=== PATIENT | male | born 1970 | race Hispanic/Latino ===

== ENCOUNTER 2020-09-10 20:43 | Inpatient (IN) | payer BC, SELFPAY ==
[2020-09-10] MEDS ORDERED: NA CHLORIDE 0.9% 2,000 ML ONE (21:16)
[2020-09-10] MEDS ORDERED: ACETAMINOPHEN 500 MG TAB ONE (21:16)
[2020-09-10] MEDS ORDERED: ALBUTEROL INHALER 60 PUFF/8 GM IH ONE (21:16)
[2020-09-10] MEDS ORDERED: CEFTRIAXONE/SWI 1gm 1 GM/10 ML SYR ONE (21:16)
[2020-09-10 21:18] LABS: Absolute Lymphocytes (CBC) 0.9 K/uL (0.7-4.9); Basophils % 0.3 % (0-1.3); Hematocrit 45.8 % (39.6-49.0); Lymphocytes % 9.7 % (15.3-44.8); MPV 11.2 fL (7.6-11.3); RBC Red Blood Cell Count 5.79 M/uL (4.33-5.43)
[2020-09-10 21:34] LABS: Protime INR 1.06
[2020-09-10 21:36] LABS: ALT/SGPT 23 U/L (12-78); AST/SGOT 35 U/L (15-37); Albumin 3.1 g/dL (3.4-5.0); Alkaline Phosphatase 71 U/L (45-117); Amylase 53 U/L (25-115); BUN Blood Urea Nitrogen 31 mg/dL (7-18); Bicarbonate 24 mmol/L (21-32); Bilirubin Direct 0.2 mg/dL (0-0.2); Bilirubin Total 0.4 mg/dL (0.2-1.0); CKMB Creatine Kinase MB < 1.0 ng/mL (0.3-3.6); Creatine Phosphokinase 104 U/L (39-308); Glucose Level 120 mg/dL (74-106); Lipase 220 U/L (73-393); Potassium 3.6 mmol/L (3.5-5.1); Protein, Total 7.5 g/dL (6.4-8.2); Sodium Level 134 mmol/L (136-145); Troponin (Emerg Dept Use Only) < 0.02 ng/mL (0.0-0.045)
[2020-09-10 22:19] LABS: C-Reactive Protein 99.7 mg/L (<3.00); Ferritin 1279.1 ng/mL (26-388)
[2020-09-10 22:30] LABS: SARS-COV-2 RT PCR POSITIVE (NEGATIVE)
--- NOTE | 2020-09-10 22:46 | ER ---
Nurse's Notes [facility] Name: Sarwat Tenorio Jr Age: 50 yrs Sex: Male : 1970 Arrival Date: 09/10/2020 Time: 20:47 Bed 4 Private MD: Diagnosis: Acute Kidney Injury;Coronavirus Presentation: 09/10 20:45 Chief complaint: EMS states: acute onset of SOB and chest pain started around 1 hour rr5 ago. 20:45 Coronavirus screen: Client denies travel out of the [place] in the last 14 days. shortness rr5 of breath, Client presents with at least one sign or symptom that may indicate coronavirus-19. Standard/surgical mask placed on the client. Provider contacted for isolation considerations. Ebola Screen: Patient negative for fever greater than or equal to 101.5 degrees Fahrenheit, and additional compatible Ebola Virus Disease symptoms Patient denies exposure to infectious person. Patient denies travel to an Ebola-affected area in the 21 days before illness onset. Initial Sepsis Screen: Does the patient meet any 2 criteria? RR > 20 per min. Temp <36.0*C (96.8*F)) or > 38.3*C (100.9*F). HR > 90 bpm. Does the patient have a suspected source of infection? Yes: Productive cough/pneumonia If YES to both, name of provider notified: Vasquez Becerra MD. Risk Assessment: Do you want to hurt yourself or someone else? Patient reports no desire to harm self or others. Onset of symptoms was September 10, 2020. Care prior to arrival: IV initiated. 20 GA, in the right antecubital area. 20:45 Method Of Arrival: EMS: [facility] rr5 20:45 Acuity: ARMIDA 2 rr5 Triage Assessment: 09/09 20:45 Respiratory: the patient has mild shortness of breath. rr5 Historical: - Allergies: 09/10 20:45 PENICILLINS; rr5 - Home Meds: 20:45 None [Active]; rr5 - PMHx: 20:45 Diverticulitis; rr5 - PSHx: 20:45 abdominal surgery; rr5 - Immunization history:: Adult Immunizations up to date. - Social history:: Smoking status: unknown Patient/guardian denies using alcohol, street drugs. Screenin:54 Abuse screen: Denies threats or abuse. Denies injuries from another. Nutritional rr5 screening: No deficits noted. Tuberculosis screening: No symptoms or risk factors identified. Fall Risk IV access (20 points). Total Eaton Fall Scale indicates No Risk (0-24 pts). Assessment: 20:45 General: Appears in no apparent distress. comfortable, Behavior is calm, cooperative, rr5 appropriate for age. Pain: Complains of pain in chest Pain does not radiate. Pain currently is 7 out of 10 on a pain scale. Quality of pain is described as aching, Pain began gradually, Is intermittent. Neuro: Level of Consciousness is awake, alert, obeys commands, Oriented to person, place, time, situation. Cardiovascular: Reports chest pain, Capillary refill < 3 seconds Patient's skin is warm and dry. Rhythm is sinus tachycardia. Respiratory: Reports shortness of breath Airway is patent Respiratory effort is even, unlabored, Respiratory pattern is regular, symmetrical, 20:45 GI: No signs and/or symptoms were reported involving the gastrointestinal system. : rr5 No signs and/or symptoms were reported regarding the genitourinary system. EENT: No signs and/or symptoms were reported regarding the EENT system. Derm: Skin is intact, is healthy with good turgor, Skin temperature is warm. Musculoskeletal: Capillary refill < 3 seconds. 22:10 Reassessment: Patient appears in no apparent distress at this time. Patient is alert, rr5 oriented x 3, equal unlabored respirations, skin warm/dry/pink. awaiting for results. 23:16 Reassessment: Patient appears in no apparent distress at this time. Patient is alert, rr5 oriented x 3, equal unlabored respirations, skin warm/dry/pink. Patient states feeling better. Patient states symptoms have improved. 23:18 Reassessment: Patient appears in no apparent distress at this time. Patient is alert, rr5 oriented x 3, equal unlabored respirations, skin warm/dry/pink. hospitalist at bedside. 09/11 00:04 Reassessment: Patient appears in no apparent distress at this time. Patient is alert, rr5 oriented x 3, equal unlabored respirations, skin warm/dry/pink. for transfer to ICU 8 Patient states feeling better. Patient states symptoms have improved. Vital Signs: 04/16 20:45 BP 137 / 93; Pulse 120; Resp 23; Temp 103.2; Pulse Ox 94% ; Weight 86.18 kg; Height 5 rr5 ft. 7 in. (170.18 cm); Pain 6/10; 21:47 BP 147 / 90; Pulse 90; Resp 20; Temp 101; Pulse Ox 99% ; rr5 23:12 BP 141 / 88; Pulse 93; Resp 19; Temp 99; Pulse Ox 99% ; rr5 23:57 BP 129 / 80; Pulse 84; Resp 17; Pulse Ox 98% ; rr5 20:45 Body Mass Index 29.76 (86.18 kg, 170.18 cm) rr5 ED Course: 20:45 Patient has correct armband on for positive identification. Placed in gown. Bed in low rr5 position. Call light in reach. Side rails up X2. monitor worker on. Pulse ox on. NIBP on. 20:46 Maintain EMS IV. Dressing intact. Good blood return noted. Site clean \T\ dry. Gauge \T\ rr 5 site: g20 right AC. 20:47 Patient arrived in ED. rr5 20:47 Conner Garza PA is PHCP. jmm 20:47 Vasquez Becerra MD is Attending Physician. jmm 20:51 Triage completed. rr5 20:53 Arm band placed on right wrist. rr5 20:54 Oliverio Boland RN is Primary Nurse. rv 21:35 Chest Single View XRAY In Process Unspecified. EDMS 22:43 Too Lainez MD is Hospitalizing Provider. jmm 23:56 No provider procedures requiring assistance completed. Patient admitted, IV remains in rr5 place. intact, No redness/swelling at site. Administered Medications: 21:15 Drug: NS 0.9% (30 ml/kg) 30 ml/kg Route: IV; Rate: bolus; Site: right antecubital; rr5 23:40 Follow up: Response: No adverse reaction; IV Status: Completed infusion; IV Intake: rr5 2500ml 21:18 Drug: Rocephin (cefTRIAXone) 1 grams Route: IV; Rate: calculated rate; Site: right rr5 antecubital; 22:20 Follow up: Response: No adverse reaction; IV Status: Completed infusion; IV Intake: [id number] 21:18 Drug: Tylenol 1000 mg Route: PO; rr5 22:30 Follow up: Response: No adverse reaction; Temperature is decreased rr5 21:25 Drug: Albuterol HFA Inhaler 2 puffs Route: Inhalation; rr5 22:20 Follow up: Response: No adverse reaction rr5 22:41 Drug: SOLU-Medrol (methylPrednisoLONE) 125 mg Route: IVP; Site: right antecubital; rv 23:40 Follow up: Response: No adverse reaction rr5 Intake: 22:20 IV: 10ml; Total: 10ml. rr5 23:40 IV: 2500ml; Total: 2510ml. rr5 Outcome: 22:45 Decision to Hospitalize by Provider. jens 23:56 Admitted to ICU accompanied by mindy, via stretcher, room 8, with chart, Report called rr5 to nathan 23:56 Condition: stable 23:56 Instructed on the need for admit. 09/11 00:22 Patient left the ED. rr5 Signatures: Dispatcher [employer] EDMS Conner Garza PA PA [facility] Oliverio Boland, RN RN Too Montiel, RN RN rr5 Corrections: (The following items were deleted from the chart) 09/10 21:48 20:45 BP 137 / 93; Pulse 94bpm; Resp 23bpm; Pulse Ox 94%; Temp 103.2F; 86.18 kg; Height rr5 5 ft. 7 in.; BMI: 29.7; Pain 6/10; rr5
--- NOTE | 2020-09-10 22:46 | EDPHYS ---
Physician Documentation [facility] Name: Sarwat Tenorio Jr Age: 50 yrs Sex: Male : 1970 Arrival Date: 09/10/2020 Time: 20:47 Bed 4 Private MD: ED Physician Vasquez Becerra HPI: 09/10 20:48 This 50 yrs old Male presents to ER via EMS with complaints of Shortness Of jmm Breath. 20:48 The patient has shortness of breath at rest. Onset: The symptoms/episode began/occurred jmm acutely, today. Duration: The symptoms are continuous, and are steadily getting worse. The patient's shortness of breath is aggravated by nothing, is alleviated by nothing. Associated signs and symptoms: Pertinent positives: chest pain, non-productive cough, fever, Pertinent negatives: vomiting. The patient has not experienced similar symptoms in the past. Historical: - Allergies: 20:45 PENICILLINS; rr5 - Home Meds: 20:45 None [Active]; rr5 - PMHx: 20:45 Diverticulitis; rr5 - PSHx: 20:45 abdominal surgery; rr5 - Immunization history:: Adult Immunizations up to date. - Social history:: Smoking status: unknown Patient/guardian denies using alcohol, street drugs. ROS: 20:48 Constitutional: Positive for fever. jmm 20:48 Cardiovascular: Positive for chest pain. 20:48 Respiratory: Positive for cough, shortness of breath. 20:48 All other systems are negative. Exam: 20:48 Head/Face: atraumatic. Eyes: EOMI, no conjunctival erythema appreciated ENT: Moist jmm Mucus Membranes Neck: Trachea midline, Supple Chest/axilla: Normal chest wall appearance and motion. Cardiovascular: Regular rate and rhythm. No edema appreciated Respiratory: Normal respirations, no respiratory distress appreciated Abdomen/GI: Non distended, soft Skin: General appearance color normal MS/ Extremity: Moves all extremities, no obvious deformities appreciated, no edema noted to the lower extremities Neuro: Awake and alert, normal gait Psych: Behavior is normal, Mood is normal, Patient is cooperative and pleasant 20:48 Constitutional: The patient appears alert, awake, anxious. Vital Signs: 20:45 BP 137 / 93; Pulse 120; Resp 23; Temp 103.2; Pulse Ox 94% ; Weight 86.18 kg; Height 5 rr5 ft. 7 in. (170.18 cm); Pain 6/10; 21:47 BP 147 / 90; Pulse 90; Resp 20; Temp 101; Pulse Ox 99% ; rr5 23:12 BP 141 / 88; Pulse 93; Resp 19; Temp 99; Pulse Ox 99% ; rr5 23:57 BP 129 / 80; Pulse 84; Resp 17; Pulse Ox 98% ; rr5 20:45 Body Mass Index 29.76 (86.18 kg, 170.18 cm) rr5 MDM: 20:49 Patient medically screened. [facility] 22:42 Data reviewed: vital signs, EMS record. Counseling: I had a detailed discussion with jens the patient and/or guardian regarding: the historical points, exam findings, and any diagnostic results supporting the discharge/admit diagnosis, lab results, radiology results, the need for further work-up and treatment in the hospital. 09/10 20:48 Order name: Amylase, Serum; Complete Time: 21:43 [facility] 09/10 20:48 Order name: Basic Metabolic Panel; Complete Time: 21:43 09/10 20:48 Order name: Blood Culture Adult (2) 09/10 20:48 Order name: CBC with Diff; Complete Time: 21:43 [facility] 09/10 20:48 Order name: Ckmb; Complete Time: 21:43 09/10 20:48 Order name: CPK; Complete Time: 21:43 09/10 20:48 Order name: Lactate; Complete Time: 21:43 09/10 20:48 Order name: LFT's; Complete Time: 21:43 [facility] 09/10 20:48 Order name: Lipase; Complete Time: 21:43 [facility] 09/10 20:48 Order name: Procalcitonin; Complete Time: 22:01 [facility] 09/10 20:48 Order name: Protime (+inr); Complete Time: 21:43 [facility] 09/10 20:48 Order name: Ptt, Activated; Complete Time: 21:43 09/10 20:48 Order name: Troponin (emerg Dept Use Only); Complete Time: 21:43 09/10 20:48 Order name: Urine Microscopic Only 09/10 20:48 Order name: Chest Single View XRAY 5 09/10 20:48 Order name: Accucheck; Complete Time: 21:19 rr5 09/10 20:48 Order name: Cardiac monitoring; Complete Time: 21:19 rr5 09/10 21:03 Order name: CRP la1 09/10 21:03 Order name: Ferritin la1 09/10 21:04 Order name: C-Reactive Protein; Complete Time: 22:20 EDMS 09/10 21:04 Order name: Ferritin; Complete Time: 22:20 EDMS 09/10 21:25 Order name: Glucose, Ancillary Testing; Complete Time: 21:43 EDMS 09/10 22:30 Order name: COVID-19/FLU A+B; Complete Time: 22:43 EDMS 09/10 20:48 Order name: EKG - Nurse/Tech; Complete Time: 21:19 rr5 09/10 20:48 Order name: IV Saline Lock - Large Bore; Complete Time: 21:19 rr5 09/10 20:48 Order name: Labs collected and sent; Complete Time: 21:19 rr5 09/10 20:48 Order name: O2 Per Protocol; Complete Time: 21:19 rr5 09/10 20:48 Order name: O2 Sat Monitoring; Complete Time: 21:19 rr5 09/10 20:48 Order name: Urine Dipstick-Ancillary (obtain specimen); Complete Time: 00:22 rr5 Administered Medications: 21:15 Drug: NS 0.9% (30 ml/kg) 30 ml/kg Route: IV; Rate: bolus; Site: right antecubital; rr5 23:40 Follow up: Response: No adverse reaction; IV Status: Completed infusion; IV Intake: rr5 2500ml 21:18 Drug: Rocephin (cefTRIAXone) 1 grams Route: IV; Rate: calculated rate; Site: right rr5 antecubital; 22:20 Follow up: Response: No adverse reaction; IV Status: Completed infusion; IV Intake: [id number] 21:18 Drug: Tylenol 1000 mg Route: PO; rr5 22:30 Follow up: Response: No adverse reaction; Temperature is decreased rr5 21:25 Drug: Albuterol HFA Inhaler 2 puffs Route: Inhalation; rr5 22:20 Follow up: Response: No adverse reaction rr5 22:41 Drug: SOLU-Medrol (methylPrednisoLONE) 125 mg Route: IVP; Site: right antecubital; rv 23:40 Follow up: Response: No adverse reaction rr5 Disposition: 09/11 07:27 Co-signature as Attending Physician, Vasquez Becerra MD. 7 Disposition: 09/10/20 22:45 Hospitalization ordered by Too Lainez for Observation. Preliminary diagnosis are Acute Kidney Injury, Coronavirus. - Bed requested for Intensive Care Unit. - Status is Observation. rr5 - Condition is Stable. - Problem is new. - Symptoms are unchanged. Signatures: Dispatcher [employer] [facility] Conner Garza PA PA [facility] Rex Mcleod, ELECTRICIAN APPRENTICE-C ELECTRICIAN APPRENTICE-Cla1 Tiffanie Mills, RN RN cg Oliverio Boland, RN RN rv Too Montiel, RN RN rr5 Vasquez Becerra MD MD 7 Corrections: (The following items were deleted from the chart) 09/10 21:08 20:55 Influenza Screen (A \T\ B)+BA.LAB.BRZ ordered. [facility] EDIL 23:41 22:45 Hospitalization Ordered by Too Lainez MD for Observation. Preliminary cg diagnosis is Acute Kidney Injury; Coronavirus. Bed requested for Telemetry/MedSurg (observation). Status is Observation. Condition is Stable. Problem is new. Symptoms are unchanged. [facility] 09/11 00:22 09/10 23:41 09/10/2020 22:45 Hospitalization Ordered by Too Lainez MD for rr5 Observation. Preliminary diagnosis is Acute Kidney Injury; Coronavirus. Bed requested for Intensive Care Unit. Status is Observation. Condition is Stable. Problem is new. Symptoms are unchanged. cg
[2020-09-10] MEDS ORDERED: METHYLPREDNISOLONE 125 MG INJ ONE (22:57)
--- NOTE | 2020-09-10 23:39 | P.HP ---
Certification for Inpatient Patient admitted to: Inpatient With expected LOS: >2 Midnights Patient will require the following post-hospital care: None Practitioner: I am a practitioner with admitting privileges, knowledge of patient current condition, hospital course, and medical plan of care. Services: Services provided to patient in accordance with Admission requirements found in Title 42 Section 412.3 of the Code of Federal Regulations <HarshaRex - Last Filed: 09/10/20 23:36> Patient History Date of Service: 09/10/20 Reason for admission: COVID-19 pneumonia History of Present Illness: 50-year-old male with no significant past medical history presents emergency department for shortness of breath. Patient reports noticing shortness of breath began today, upon arrival to the emergency department patient was saturating around 90-93% on room air. Labs in the emergency department significant for sodium 134, BUN 31 creatinine 1.9 GFR 38 CRP 899.7 ferritin 1279.1 pro calcitonin 0.34 patient tested positive for Reddy virus, chest x-ray suggests bilateral reddy virus pneumonia. ED provider wishes to admit for further evaluation and management. 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 family - Family History Father -: Diabetes, Cancer Mother -: Diabetes, Cancer - Social History Smoking Status: Never smoker Alcohol use: No CD- Drugs: No Caffeine use: Yes Place of Residence: Home <Rex Mcleod - Last Filed: 09/10/20 23:36> Date of Service: 09/11/20 <Too Lainez - Last Filed: 09/11/20 12:20> Review of Systems 10-point ROS is otherwise unremarkable General: Fever, Chills, Weakness, Malaise Respiratory: Cough, Shortness of Breath, SOB with Excertion, Pleuritic Pain <Rex Mcleod - Last Filed: 09/10/20 23:36> Physical Examination - Physical Exam General: Alert, In no apparent distress HEENT: Atraumatic, PERRLA, Mucous membr. moist/pink Neck: Supple, 2+ carotid pulse no bruit, No LAD Respiratory: Normal air movement, Diminished (Bilaterally) Cardiovascular: Regular rate/rhythm, Normal S1 S2 Gastrointestinal: Normal bowel sounds, No tenderness Musculoskeletal: No tenderness Integumentary: No rashes Neurological: Normal gait, Normal speech, Normal strength at 5/5 x4 extr, Normal tone, Normal affect Lymphatics: No axilla or inguinal lymphadenopathy - Studies Laboratory Data (last 24 hrs) 09/10/20 20:45: PT 12.2, INR 1.06, APTT 31.2 09/10/20 20:45: WBC 9.10, Hgb 15.8, Hct 45.8, Plt Count 172 09/10/20 20:45: Sodium 134 L, Potassium 3.6, BUN 31 H, Creatinine 1.90 H, Glucose 120 H, Total Bilirubin 0.4, AST 35, ALT 23, Alkaline Phosphatase 71, Amylase 53, Lipase 220 <Rex Mcleod - Last Filed: 09/10/20 23:36> - Studies Laboratory Data (last 24 hrs) 09/10/20 20:45: PT 12.2, INR 1.06, APTT 31.2 09/10/20 20:45: WBC 9.10, Hgb 15.8, Hct 45.8, Plt Count 172 09/10/20 20:45: Sodium 134 L, Potassium 3.6, BUN 31 H, Creatinine 1.90 H, Glucose 120 H, Total Bilirubin 0.4, AST 35, ALT 23, Alkaline Phosphatase 71, Amylase 53, Lipase 220 <Too Lainez - Last Filed: 09/11/20 12:20> Assessment and Plan - Plan Assessment Dyspnea, tachypnea, fever secondary to bilateral COVID-19 pneumonia MELANIE Plan Dyspnea, tachypnea, fever secondary to bilateral COVID-19 pneumonia: Continue with IV steroids, oral supplements, ivermectin, daily CRP/ferritin levels. Pulmonology consult in place. Daily room air saturations, supplemental oxygen as needed titrate sats greater than 93%. Patient requiring little to no oxygen at this time but is significantly dyspneic/tachypneic with respiratory rate in the mid 20s and some accessory muscle use. DVT prophylaxis Lovenox 40 mg subcutaneous once daily in addition to daily aspirin. MELANIE: Likely dehydration, patient received sepsis fluid bolus in the ER, continue with NS at 100 cc/hour overnight, recheck labs in the morning. Discharge Plan: Home Plan to discharge in: 48 Hours - Advance Directives Does patient have a Living Will: No Does patient have a Durable POA for Healthcare: No - Code Status/Comfort Care Code Status Assessed: Yes (Full code) Critical Care: No Time Spent Managing Pts Care (In Minutes): 55 <Rex Mcleod - Last Filed: 09/10/20 23:36> - Plan Plan of care reviewed as noted by Rex Mcleod COVID-19 pneumonia MELANIE continue IVF, steroids, supplements per covid protocol <Too Lainez - Last Filed: 09/11/20 12:20>
[2020-09-11] MEDS ORDERED: BENZONATATE 100 MG CAP PO PRN (00:04)
[2020-09-11] MEDS ORDERED: MELATONIN 5 MG TABLET PO PRN (00:04)
[2020-09-11] MEDS ORDERED: ACETAMINOPHEN 500 MG TAB PO PRN (00:04)
[2020-09-11] MEDS ORDERED: ONDANSETRON 4 MG/2 ML VIAL IV PRN (00:04)
[2020-09-11] MEDS: NA CHLORIDE 0.9% 1,000 ML IV SCH ×3 (00:40→21:22)
[2020-09-11 00:51] LABS: Urine Amorphous Sediment 1+ /HPF (NONE SEEN); Urine Bacteria 20-50 /HPF (NONE SEEN); Urine Coarse Granular Casts FEW /LPF (NONE SEEN); Urine Mucus 2+ /HPF (NONE SEEN)
[2020-09-11 05:11] LABS: Absolute Lymphocytes (CBC) 0.8 K/uL (0.7-4.9); Basophils % 0.2 % (0-1.3); Hematocrit 42.2 % (39.6-49.0); Lymphocytes % 15.5 % (15.3-44.8); MPV 11.7 fL (7.6-11.3); RBC Red Blood Cell Count 5.28 M/uL (4.33-5.43)
[2020-09-11 05:39] LABS: Albumin 2.4 g/dL (3.4-5.0); Bilirubin Total 0.3 mg/dL (0.2-1.0); C-Reactive Protein 72.4 mg/L (<3.00); Ferritin 1119.1 ng/mL (26-388); Magnesium 2.3 mg/dL (1.8-2.4); Protein, Total 6.1 g/dL (6.4-8.2); Thyroid Stimulating Hormone 1.12 uIU/mL (0.360-3.740)
[2020-09-11 05:42] VITALS: BMI 28.0
[2020-09-11] MEDS ORDERED: IVERMECTIN 3 MG TABLET PO SCH (08:00)
[2020-09-11] MEDS: ENOXAPARIN 40 MG/0.4 ML SQ SCH (08:15)
[2020-09-11] MEDS: VITAMIN D 1000 UNIT TAB PO SCH (08:15)
[2020-09-11] MEDS: THIAMINE HCL 100 MG TABLET PO SCH (08:16)
[2020-09-11] MEDS: ASPIRIN EC 81 MG TAB PO SCH (08:16)
[2020-09-11] MEDS: METHYLPREDNISOLONE 40 MG INJ IV SCH ×2 (08:16→21:09)
[2020-09-11] MEDS: ZINC SULFATE 220 MG CAP PO SCH (08:16)
[2020-09-11] MEDS: ASCORBIC ACID 500 MG TABLET PO SCH ×4 (08:16→21:10)
--- NOTE | 2020-09-11 12:21 | P.PN ---
Subjective Date of Service: 09/11/20 Chief Complaint: COVID-19 pneumonia Subjective: Improving (feels slightly better, breathing more comfortably, denies nausea/vomiting, feels weak, has not gotten out of bed) Review of Systems 10-point ROS is otherwise unremarkable Physical Examination - Vital Signs Temperature: 97.1 F Blood Pressure: 162/76 Pulse: 71 Respirations: 23 Pulse Ox (%): 96 - Studies Laboratory Data (last 24 hrs) 09/10/20 20:45: PT 12.2, INR 1.06, APTT 31.2 09/10/20 20:45: WBC 9.10, Hgb 15.8, Hct 45.8, Plt Count 172 09/10/20 20:45: Sodium 134 L, Potassium 3.6, BUN 31 H, Creatinine 1.90 H, Glucos e 120 H, Total Bilirubin 0.4, AST 35, ALT 23, Alkaline Phosphatase 71, Amylase 53, Lipase 220 Assessment & Plan Physician Review Additional Text: Physical Exam General: Alert, In no apparent distress HEENT: Normal conjunctiva, sclerae anicteric Respiratory: Normal air movement, Diminished (Bilaterally), slight tachypnea Cardiovascular: Regular rate/rhythm, Normal S1 S2 Gastrointestinal: Normal bowel sounds, No tenderness, soft Musculoskeletal: No tenderness, no edema Integumentary: No rashes Problem List Dyspnea, tachypnea, fever secondary to bilateral COVID-19 pneumonia MELANIE -continue IV steroids, oral supplements, under MAC and -CRP and ferritin significantly elevated -daily room air saturations -slight tachypnea on exam -MELANIE, likely prerenal/dehydration, improved slightly with sepsis bolus and IV fluid overnight, Cr still remains elevated -will monitor through today, ambulate, see if tolerating PO, repeat BMP in AM Dispo: anticipate dc home in 24hrs Time Spent Managing Pts Care (In Minutes): 35
--- NOTE | 2020-09-11 22:22 | RAD REPORT ---
EXAM DESCRIPTION: RAD - Chest Single View - 09/10/2020 9:34 pm CLINICAL HISTORY: SOB COMPARISON: None. FINDINGS: Single frontal radiograph view of the chest. Cardiomediastinal silhouette: Normal size and contour. Lungs: Mild bilateral perihilar and left basilar patchy opacities. Low lung volumes. No pneumothorax or large effusion. Leads overlie the chest. Bones: No acute osseous abnormality. Upper abdomen: No abnormality identified. IMPRESSION: 1. Mild patchy perihilar and left basilar opacities may be related to low lung volumes a nd crowding however developing pneumonic process could produce this appearance. Electronically signed by: Turner Fernandez 09/10/2020 10:25 PM CDT Due to temporary technical issues with the PACS/Fluency reporting system, reports are being signed by the in house radiologists without review as a courtesy to insure prompt reporting. The interpreting radiologist is fully responsible for the content of the report.
[2020-09-12 05:12] LABS: Absolute Lymphocytes (CBC) 0.9 K/uL (0.7-4.9); Basophils % 0.3 % (0-1.3); Lymphocytes % 8.3 % (15.3-44.8); MPV 10.8 fL (7.6-11.3); RBC Red Blood Cell Count 5.23 M/uL (4.33-5.43)
[2020-09-12 05:33] LABS: ALT/SGPT 25 U/L (12-78); AST/SGOT 32 U/L (15-37); Albumin 2.4 g/dL (3.4-5.0); Alkaline Phosphatase 56 U/L (45-117); BUN Blood Urea Nitrogen 19 mg/dL (7-18); Bicarbonate 22 mmol/L (21-32); Bilirubin Total 0.3 mg/dL (0.2-1.0); Ferritin 800.3 ng/mL (26-388); Glucose Level 157 mg/dL (74-106); Magnesium 2.1 mg/dL (1.8-2.4); Potassium 3.5 mmol/L (3.5-5.1); Protein, Total 6.1 g/dL (6.4-8.2); Sodium Level 142 mmol/L (136-145)
[2020-09-12 06:02] LABS: Platelet Estimate ADEQ
[2020-09-12 06:03] LABS: Blood Morphology Comment NOT SEEN (NOT SEEN)
[2020-09-12] MEDS ORDERED: POTASSIUM 25 MEQ EFFERV TAB PO ONE (09:00)
[2020-09-12] MEDS: THIAMINE HCL 100 MG TABLET PO SCH (09:26)
[2020-09-12] MEDS: ASPIRIN EC 81 MG TAB PO SCH (09:26)
[2020-09-12] MEDS: METHYLPREDNISOLONE 40 MG INJ IV SCH (09:26)
[2020-09-12] MEDS: ENOXAPARIN 40 MG/0.4 ML SQ SCH (09:26)
[2020-09-12] MEDS: VITAMIN D 1000 UNIT TAB PO SCH (09:26)
[2020-09-12] MEDS: ZINC SULFATE 220 MG CAP PO SCH (09:26)
[2020-09-12] MEDS: ASCORBIC ACID 500 MG TABLET PO SCH (09:26)
[2020-09-12 10:34] VITALS: O2SAT 92
[2020-09-12 12:27] VITALS: BP 148/82; TEMP 97.8
--- NOTE | 2020-09-12 12:51 | P.DS ---
Admission Date: 09/10/20 Discharge Date: 09/12/20 Disposition: ROUTINE DISCHARGE Discharge Condition: GOOD Reason for Admission: COVID-19 pneumonia Procedures: CXR (09/10): Mild patchy perihilar and left basilar opacities may be related to low lung volumes and crowding however developing pneumonic process could produce this appearance. Cardiomediastinal silhouette: Normal size and contour. Lungs: Mild bilateral perihilar and left basilar patchy opacities. Low lung volumes. No pneumothorax or large effusion. Leads overlie the chest. Bones: No acute osseous abnormality. Upper abdomen: No abnormality identified. Problem List Dyspnea, tachypnea, fever secondary to bilateral COVID-19 pneumonia MELANIE, prerenal Brief History of Present Illness: 50-year-old male with no significant past medical history presents emergency department for shortness of breath. Patient reports noticing shortness of breath began today, upon arrival to the emergency department patient was saturating around 90-93% on room air. Labs in the emergency department significant for sodium 134, BUN 31 creatinine 1.9 GFR 38 CRP 899.7 ferritin 1279.1 pro calcitonin 0.34 patient tested positive for Reddy virus, chest x-ray suggests bilateral reddy virus pneumonia. ED provider wishes to admit for further evaluation and management. Hospital Course: Patient was treated with IV steroids, vitamin supplementation, and ivermectin. He did not require oxygen supplementation. His tachypnea and dyspnea improved with treatment. He was also found to have an MELANIE, which improved with IV fluid hydration. On day of discharge, patient was ambulating much better and less dyspneic, not requiring oxygen supplementation, and was tolerating diet. He was discharged with prednisone, vitamin supplementation, one more dose of ivermectin. Advised to purchase a pulse oximeter to help monitor his oxygen saturation if he begins to feel worse. He is to follow up with Dr. Mark - to call the office to schedule appointment. Vital Signs/Physical Exam: Temp Pulse Resp BP Pulse Ox 97.8 F 74 17 148/82 H 94 09/12/20 12:00 09/12/20 12:00 09/12/20 12:00 09/12/20 12:00 09/12/20 12:00 Laboratory Data at Discharge: WBC 10.90 K/uL (4.3-10.9) D 09/12/20 04:50 Hgb 14.0 g/dL (13.6-17.9) 09/12/20 04:50 Hct 42.0 % (39.6-49.0) 09/12/20 04:50 Plt Count 188 K/uL (152-406) 09/12/20 04:50 PT 12.2 SECONDS (9.5-12.5) 09/10/20 20:45 INR 1.06 09/10/20 20:45 APTT 31.2 SECONDS (24.3-36.9) 09/10/20 20:45 Sodium 142 mmol/L (136-145) 09/12/20 04:50 Potassium 3.5 mmol/L (3.5-5.1) 09/12/20 04:50 BUN 19 mg/dL (7-18) H 09/12/20 04:50 Creatinine 0.86 mg/dL (0.55-1.3) 09/12/20 04:50 Glucose 157 mg/dL (74-106) H 09/12/20 04:50 Magnesium 2.1 mg/dL (1.8-2.4) 09/12/20 04:50 Total Bilirubin 0.3 mg/dL (0.2-1.0) 09/12/20 04:50 AST 32 U/L (15-37) 09/12/20 04:50 ALT 25 U/L (12-78) 09/12/20 04:50 Alkaline Phosphatase 56 U/L (45-117) 09/12/20 04:50 Amylase 53 U/L (25-115) 09/10/20 20:45 Lipase 220 U/L (73-393) 09/10/20 20:45 Home Medications: Ascorbic Acid [Vitamin C*] 500 mg PO QID 30 Days #120 tablet 09/12/20 Aspirin [Aspirin EC 325 MG] 325 mg PO DAILY 30 Days #30 tablet. 09/12/20 Cholecalciferol (Vitamin D3) [Vitamin D 1000 Iu Tab*] 4,000 unit PO DAILY 30 Days #120 tab 09/12/20 Ivermectin 18 mg PO ONCE 1 Days #6 tablet 09/12/20 Thiamine HCl [Vitamin B-1*] 200 mg PO DAILY 30 Days #30 tablet 09/12/20 Zinc Sulfate [Zinc Sulfate*] 220 mg PO DAILY 30 Days #30 cap 09/12/20 predniSONE [Prednisone] 20 mg PO SEECOM 14 Days #21 tablet 09/12/20 New Medications: Aspirin [Aspirin EC 325 MG] 325 mg PO DAILY 30 Days #30 tablet. Ivermectin 18 mg PO ONCE 1 Days #6 tablet predniSONE [Prednisone] 20 mg PO SEECOM 14 Days #21 tablet Thiamine HCl [Vitamin B-1*] 200 mg PO DAILY 30 Days #30 tablet Ascorbic Acid [Vitamin C*] 500 mg PO QID 30 Days #120 tablet Cholecalciferol (Vitamin D3) [Vitamin D 1000 Iu Tab*] 4,000 unit PO DAILY 30 Days #120 tab Zinc Sulfate [Zinc Sulfate*] 220 mg PO DAILY 30 Days #30 cap Physician Discharge Instructions: PROBLEM: Covid Pneumonia GOAL: Clear understanding of disease process INSTRUCTIONS: You were found to have COVID-19 pneumonia. Your symptoms improved with the treatment of steroids, ivermectin, and vitamin supplementation. You did not require oxygen supplementation. You are discharged home to continue with oral steroids and vitamins. Follow-up with Dr. Mark in ~1 week. Call [phone] for any questions regarding hospital stay Diet: Regular Activity: As tolerated E-script sent to [facility] in [place] [employer] Influenza Vaccine Indicated: Influenza Vaccine Given: Date Given: Pneumonia Vaccine Indicated: No Pneumonia Vaccine Given: Date Given: Diet: Regular Activity: Ad elizabeth Followup: Darion Mark MD [ACTIVE - CAN ADMIT] - 1-2 Weeks Unknown,U [Primary Care Provider] - Time spent managing pt's care (in minutes): 35
[2020-09-15 16:43] LABS: Urine Blood TRACE (Negative); Urine Glucose NEGATIVE (Negative); Urine Protein 2+ (Negative)
== END 2020-09-12 16:00 | disposition home or self-care (01) | DRG 871 ==
LOC: ER 20:43 → 3RD-ICU 09-11 00:02 → 4TH 09-11 18:30
PROVIDERS: ADMIT Hospitalist; ATTEND Hospitalist
DX: A41.89 Other specified sepsis (principal); U07.1 COVID-19; J12.82 Pneumonia due to coronavirus disease 2019; N17.9 Acute kidney failure, unspecified; Z88.0 Allergy status to penicillin; Z79.82 Long term (current) use of aspirin; Z79.52 Long term (current) use of systemic steroids; Z79.899 Other long term (current) drug therapy
CPT/HCPCS: 0240U; 36415; 71045; 80048; 80053; 80076; 81003; 81015; 82150; 82550; 82553; 82728; 82947; 83605; 83690; 83735; 84145; 84439; 84443; 84484; 85025; 85610; 85730; 86140; 87040; 87086; 87088; 93005; 94010; 96365; 96375; 99285; J0696; J1650; J2920; J2930; J7030